=== PATIENT | female | born 1985 | race Caucasian/White ===

== ENCOUNTER 2023-09-14 18:39 | Emergency (ER) | payer BC, MEDICAID, SELFPAY ==
[2023-09-14 18:43] VITALS: BP 126/93; PULSE 94; RESP 16; TEMP 37; O2SAT 99; BMI 28.7
--- NOTE | 2023-09-14 18:53 | ED_ITS ---
HPI - Female Genitourinary General Chief complaint: Urogenital-Female Stated complaint: uti Time Seen by Provider: 09/14/23 18:41 Source: patient Mode of arrival: walk-in Limitations: no limitations History of Present Illness HPI Narrative: patient is a 38-year-old female who presents to the emergency department for a one-day history of urinary urgency and frequency. She states she has had minimal pain discharge. No flank or back pain. She denies fevers, chills, nausea, vomiting. She has had two or three previous urinary tract infection this year. She is not concerned for . She denies any concern for STD exposure. No medications taken prior to arrival. Related Data Previous Rx's Medication Instructions Recorded ondansetron 4 mg disintegrating 4 mg PO Q6H PRN nausea and 09/14/23 tablet vomiting #12 tabs phenazopyridine 200 mg tablet 200 mg PO Q8H 2 days #6 tabs 09/14/23 (Pyridium) sulfamethoxazole 800 1 tab PO BID 7 days #14 tabs 09/14/23 mg-trimethoprim 160 mg tablet (Bactrim DS) Allergies Allergy/AdvReac Type Severity Reaction Status Date / Time cefotaxime [From Claforan] Allergy Unknown Verified 09/14/23 18:43 Review of Systems ROS Constitutional Denies: fever or chills Ears, nose, mouth, and throat Denies: throat pain Cardiovascular Denies: chest pain Respiratory Denies: shortness of breath Gastrointestinal Denies: nausea or vomiting Genitourinary Reports: urinary frequency and urinary urgency Musculoskeletal Denies: back pain Integumentary/Breast Denies: rash Neurological Denies: headache Hematologic/Lymphatic Denies: easy bruising Exam Narrative Exam Narrative: Gen.: Awake, alert, in no distress Head: Normocephalic, atraumatic ENT: Moist mucous membranes Respiratory: No respiratory distress, lungs clear bilaterally Cardio: Regular rate and rhythm Gastrointestinal: Abdomen is soft, nondistended and nontender to palpation; no flank or back tenderness Extremities: Moves extremities equally Psych: Normal mood and affect Neuro: No focal neuro deficit Skin: Warm, dry, intact Constitutional Vital Signs, click to edit/add: Last Vital Signs Temp 98.6 F 09/14/23 18:43 Pulse 94 H 09/14/23 18:43 Resp 16 09/14/23 18:43 BP 126/93 H 09/14/23 18:43 Pulse Ox 99 09/14/23 18:43 O2 Del Method Room Air 09/14/23 18:43 Course Vital Signs Vital signs: Vital Signs Temperature 98.6 F 09/14/23 18:43 Pulse Rate 94 H 09/14/23 18:43 Respiratory Rate 16 09/14/23 18:43 Blood Pressure 126/93 H 09/14/23 18:43 Pulse Oximetry 99 09/14/23 18:43 Oxygen Delivery Method Room Air 09/14/23 18:43 Temperature 98.6 F 09/14/23 18:43 Pulse Rate 94 H 09/14/23 18:43 Respiratory Rate 16 09/14/23 18:43 Blood Pressure 126/93 H 09/14/23 18:43 Pulse Oximetry 99 09/14/23 18:43 Oxygen Delivery Method Room Air 09/14/23 18:43 MDM - Female Genitourinary MDM Narrative Medical decision making narrative: test is negative and urine specimen shows urinary tract infection. Patient treated with Bactrim, Zofran, Pyridium. As she has had multiple urinary tract infections this year, she is referred to urology for further evaluation and treatment. Stable vital signs at discharge. Return to the Emergency Room if symptoms change or worsen. Medical Records Attestation: I reviewed the patient's medical records. Lab Data Attestation: I reviewed the patient's lab results. Labs: Lab Results 09/14/23 Range/Units 18:50 Urine Color Lt. yellow (YELLOW) Urine Clarity Clear (CLEAR) Urine pH 6.5 (5.0-9.0) Ur Specific [place] <=1.005 A (1.005-1.025) Urine Protein 30 A (NEG/TRACE) mg/dL Urine Glucose (UA) Negative (NEGATIVE) mg/dL Urine Ketones Negative (NEGATIVE) mg/dL Urine Occult Blood Large A (NEGATIVE) Urine Nitrite Negative (NEGATIVE) Urine Bilirubin Negative (NEGATIVE) Urine Urobilinogen 0.2 (0.2-1.0) EU/dL Ur Leukocyte Esterase Large A (NEGATIVE) Urine RBC 0-2 (0-2) #/HPF Urine WBC 5-10 A (NONE SEEN) #/HPF Ur Squamous Epith Cells Few A (NONE/RARE) #/LPF Urine Crystals None seen (None Seen) #/HPF Urine Bacteria Trace A (NONE SEEN) #/HPF Urine Casts None seen (NONE SEEN) #/LPF Urine Mucus None seen (NONE SEEN) Ur Culture Indicated? Yes Urine HCG, Qual Negative (NEGATIVE) Discharge Plan Discharge Chief Complaint: Urogenital-Female Clinical Impression: Urinary tract infection Patient Disposition: Home, Self-Care Time of Disposition Decision: 19:22 Condition: Good Prescriptions / Home Meds: New sulfamethoxazole-trimethoprim [Bactrim DS] 800-160 mg tablet 1 tab PO BID 7 Days Qty: 14 0RF phenazopyridine [Pyridium] 200 mg tablet 200 mg PO Q8H 2 Days Qty: 6 0RF ondansetron 4 mg tablet,disintegrating 4 mg PO Q6H PRN (Reason: nausea and vomiting) Qty: 12 0RF Instructions: Urinary Tract Infection in Women (ED) Stand Alone Forms: Portal Instructions Referrals: Kristyn Bullock MD [Physician] - 1 week Physician,Non-Staff, [Primary Care Provider] - 1 week Discharge Date/Time: 09/14/23 19:48
[2023-09-14 19:06] LABS: Bilirubin Urine NEGATIVE (NEGATIVE); Blood Urine LARGE (NEGATIVE); Clarity Urine CLEAR (CLEAR); Color Urine LT. YELLOW (YELLOW); Glucose Urine UA NEGATIVE (NEGATIVE); Ketones Urine NEGATIVE (NEGATIVE); Leukocyte Esterase Urine LARGE (NEGATIVE); Nitrite Urine NEGATIVE (NEGATIVE); Protein Urine 30 mg/dL (NEG/TRACE); Specific Gravity Urine <=1.005 (1.005-1.025); Urobilinogen Urine 0.2 EU/dL (0.2-1.0); pH Urine 6.5 (5.0-9.0)
[2023-09-14] MEDS: PHENAZOPYRIDINE 100 MG TABLET 200 MG PO (19:08)
[2023-09-14 19:10] LABS: HCG Qualitative Urine* NEGATIVE (NEGATIVE); Urine Microscopic Indicated YES
[2023-09-14 19:20] LABS: Bacteria Urine TRACE #/HPF (NONE SEEN); Cast Seen? NONE SEEN #/LPF (NONE SEEN); Crystals Seen? None Seen #/HPF (None Seen); Mucus Urine NONE SEEN (NONE SEEN); RBC Urine 0-2 #/HPF (0-2); Squamous Epithelial Cell Urine FEW #/LPF (NONE/RARE)
[2023-09-14 19:21] LABS: Urine Culture Indicated YES
[2023-09-14] MEDS: SULFAMETHOXAZOLE/TRIMETHOPRIM 800-160 MG TABLET 1 TAB PO (19:45)
== END 2023-09-14 19:48 | disposition home or self-care (01) ==
PROVIDERS: Physician Assistant; Emergency Provider Emergency Medicine
DX: N39.0 Urinary tract infection, site not specified (principal)
CPT/HCPCS: 81001; 84703; 87086; 99283

== ENCOUNTER 2024-10-10 10:18 | Emergency (ER) | payer BC, SELFPAY ==
[2024-10-10 10:22] VITALS: BP 120/68; PULSE 72; TEMP 36.6; O2SAT 98; BMI 29.9
--- NOTE | 2024-10-10 10:32 | CT_ITS ---
[address] [address] Patient Name: BRAEDEN ADAMS MRN: [id number] date: 1985 Sex: F Assigned Patient Location: ER Current Patient Location: ER Accession/Order Number: [id number] Exam Date: 10/10/2024 12:15 Report Date: 10/10/2024 13:38 At the request of: CARLOS A LEWIS Procedure: CT abdomen pelvis w con CT ABDOMEN AND PELVIS WITH CONTRAST: INDICATION: Rectal pain, bleeding. COMPARISON: None. TECHNIQUE: Helical CT images of the abdomen and pelvis were obtained after the administration of intravenous contrast. Dose reduction techniques were achieved by using automated exposure control and/or adjustment of mA and/or kV according to patient size and/or use of iterative reconstruction technique. FINDINGS: LOWER CHEST: The visualized lung bases are clear. Small hiatal hernia. LIVER: Unremarkable. GALLBLADDER AND BILIARY SYSTEM: Unremarkable. SPLEEN: Unremarkable. PANCREAS: Unremarkable. ADRENAL GLANDS: Unremarkable. KIDNEYS AND URETERS: The kidneys enhance symmetrically. There is no hydronephrosis. No focal renal lesions. BLADDER: Under distended. GASTROINTESTINAL TRACT: No evidence of bowel obstruction or colitis. Normal appendix. VASCULATURE: Unremarkable. RETROPERITONEUM AND LYMPH NODES: No lymphadenopathy or mass. PERITONEUM/MESENTERY: No abdominal ascites. No free air. PELVIS: There is a right ovarian cyst measuring 4.2 x 3.3 cm. Partially collapsed right ovarian cyst measuring 1.8 x 1.6 cm. No pelvic ascites or lymphadenopathy. BODY WALL: Small fat-containing umbilical hernia. BONES: No acute abnormality. CT/CT abdomen pelvis w con IMPRESSION: 1. Right ovarian cyst measuring 4.2 cm. 2. Small hiatal hernia. 3. Small fat-containing umbilical hernia. Electronically authenticated by: BRANDON MAJOR Date: 10/10/2024 13:38
--- NOTE | 2024-10-10 10:32 | ED.GENADUL1 ---
HPI HPI - General Adult General Chief complaint: Abdominal Pain Stated complaint: RECTAL PAIN Time Seen by Provider: 10/10/24 10:20 Source: patient Mode of arrival: walk-in Limitations: no limitations History of Present Illness HPI narrative: 39-year-old female presents for rectal pain and bleeding. It began yesterday. She felt like she needed to have a bowel movement and she did but there was some blood mixed in with her stool. There was no injury and this is never happened to her previously. She does not complain of abdominal pain, all of her pain seems to be in the rectal region. The pain was moderate to severe and sharp. Related Data Previous Rx's ?Medication ?Instructions ?Recorded ondansetron 4 mg disintegrating 4 mg PO Q6H PRN nausea and 09/14/23 tablet vomiting #12 tabs phenazopyridine 200 mg tablet 200 mg PO Q8H 2 days #6 tabs 09/14/23 (Pyridium) sulfamethoxazole 800 1 tab PO BID 7 days #14 tabs 09/14/23 mg-trimethoprim 160 mg tablet (Bactrim DS) Allergies Allergy/AdvReac Type Severity Reaction Status Date / Time cefotaxime (From Claforan) Allergy Unknown Rash Verified 10/10/24 10:26 Opioid HPI Opioid Management Most Recent Opioid Data: No Data to Display Review of Systems ROS Narrative A ten point review of systems is negative except as noted above. PFSH PFSH Social History Little interest or pleasure in doing things: not at all Feeling down, depressed, or hopeless: not at all Exam Narrative Exam Narrative: Nurses note and vital signs reviewed and patient is not hypoxic. General: The patient appears in no apparent distress. Patient is laying on her side. Skin: Warm, dry, no pallor noted. There is no rash noted. Head: Normocephalic, atraumatic Eye: Normal conjunctiva, no drainage Ears, Nose, Mouth, and Throat: oral mucosa is moist. Nares patent. Cardiovascular: Regular Rate and Rhythm Respiratory: Patient is in no distress, no accessory muscle use, lungs are clear to auscultation, no wheezing, rales or rhonchi Back: non-tender GI: Soft and nontender. Perianal examination shows no external hemorrhoids nor any fissures or tears. Musculoskeletal: The patient has no evidence of calf tenderness, no pitting edema, symmetrical pulses noted bilaterally Neurological: A&O, normal speech Psychiatric: Cooperative Constitutional Vital Signs, click to edit/add: Last Vital Signs Temp 97.9 F 10/10/24 10:22 Pulse 72 10/10/24 10:22 Resp 20 10/10/24 10:22 BP 120/68 10/10/24 10:22 Pulse Ox 98 10/10/24 10:22 Course Vital Signs Vital signs: Vital Signs Temperature 97.9 F 10/10/24 10:22 Pulse Rate 72 10/10/24 10:22 Respiratory Rate 20 10/10/24 10:22 Blood Pressure 120/68 10/10/24 10:22 Pulse Oximetry 98 10/10/24 10:22 Temperature 97.9 F 10/10/24 10:22 Pulse Rate 72 10/10/24 10:22 Respiratory Rate 20 10/10/24 10:22 Blood Pressure 120/68 10/10/24 10:22 Pulse Oximetry 98 10/10/24 10:22 Medical Decision Making [facility] Narrative Medical decision making narrative: CAT scan shows incidental finding of an ovarian cyst but no findings to explain her symptoms. She is released home and the CAT scan findings were discussed with her. Blood work also essentially normal. Treatment diagnosis and follow-up were discussed thoroughly. Differential Diagnosis Differential Diagnosis: Constipation, proctitis Lab Data Lab results reviewed: Yes I reviewed the patient's lab results Labs: Lab Results 10/10/24 Range/Units 11:16 WBC 6.3 (4.0-11.0) 10^3/uL RBC 4.26 (4.20-5.40) 10^6/uL Hgb 13.3 (12.0-16.0) g/dL Hct 37.7 (36.0-48.0) % MCV 88.5 (81.0-99.0) fL MCH 31.2 (26.7-34.0) pg MCHC 35.3 H (29.9-35.2) g/dL RDW 11.6 (11.0-15.0) % Plt Count 204 (150-450) 10^3/uL MPV 10.8 (9.5-13.5) fL Neut % (Auto) 57.7 (43.0-75.0) % Lymph % (Auto) 32.8 (20.5-60.0) % [place] % (Auto) 7.1 (1.7-12.0) % Eos % (Auto) 1.4 (0.9-7.0) % Baso % (Auto) 0.5 (0.2-2.0) % Neut # (Auto) 3.7 (1.4-6.5) 10^3/uL Lymph # (Auto) 2.1 (1.2-3.8) 10^3/uL [place] # (Auto) 0.5 (0.3-0.8) 10^3/uL Eos # (Auto) 0.1 (0.0-0.7) 10^3/uL Baso # (Auto) 0.0 (0.0-0.1) 10^3/uL Abs Immat Gran (auto) 0.03 (0.00-0.03) 10^3/uL Imm/Tot Granulo (auto) 0.5 (0.0-0.5) % Sodium 140 (136-145) mmol/L Potassium 4.1 (3.5-5.1) mmol/L Chloride 107 (98-107) mmol/L Carbon Dioxide 24.1 (21.0-32.0) mmol/L Anion Gap 13.0 BUN 14.0 (7.0-18.0) mg/dL Creatinine 0.92 (0.55-1.02) mg/dL Est GFR ( Amer) >60 (>=60 mL/min/1.73m^2) Est GFR (Non-Af Amer) >60 (>=60 mL/min/1.73m^2) BUN/Creatinine Ratio 15.2 Glucose 105 (74-106) mg/dL Calcium 8.6 (8.5-10.1) mg/dL Serum HCG, Qual Negative (NEGATIVE) Imaging Data CT scan - abdomen: Radiologist's impression: ITS Impressions Abdomen/Pelvis CT 10/10/24 10:32 IMPRESSION: 1. Right ovarian cyst measuring 4.2 cm. 2. Small hiatal hernia. 3. Small fat-containing umbilical hernia. Electronically authenticated by: BRANDON MAJOR Date: 10/10/2024 13:38 Discharge Plan Discharge Chief Complaint: Abdominal Pain Clinical Impression: Rectal pain Patient Disposition: Home, Self-Care Time of Disposition Decision: 13:50 Condition: Good Mode of Transportation: Private Vehicle Prescriptions / Home Meds: No Action sulfamethoxazole-trimethoprim [Bactrim DS] 800-160 mg tablet 1 tab PO BID 7 Days Qty: 14 0RF phenazopyridine [Pyridium] 200 mg tablet 200 mg PO Q8H 2 Days Qty: 6 0RF ondansetron 4 mg tablet,disintegrating 4 mg PO Q6H PRN (Reason: nausea and vomiting) Qty: 12 0RF Print Language: Croatian Instructions: Rectal Pain (ED) Referrals: [facility] [Primary Care Provider] - 1 week
[2024-10-10 11:36] LABS: Basophils Percent Auto 0.5 % (0.2-2.0); Eosinophils Absolute Auto 0.1 10^3/uL (0.0-0.7); Eosinophils Percent Auto 1.4 % (0.9-7.0); Hematocrit 37.7 % (36.0-48.0); Hemoglobin 13.3 g/dL (12.0-16.0); Immature Granulocytes Abs Auto 0.03 10^3/uL (0.00-0.03); Immature Granulocytes Pct Auto 0.5 % (0.0-0.5); Lymphocytes Absolute Auto 2.1 10^3/uL (1.2-3.8); Lymphocytes Percent Auto 32.8 % (20.5-60.0); Mean Corpuscular HGB Conc 35.3 g/dL (29.9-35.2); Mean Corpuscular Hemoglobin 31.2 pg (26.7-34.0); Mean Corpuscular Volume 88.5 fL (81.0-99.0); Mean Platelet Volume 10.8 fL (9.5-13.5); Monocytes Absolute Auto 0.5 10^3/uL (0.3-0.8); Monocytes Percent Auto 7.1 % (1.7-12.0); Neutrophils Absolute Auto 3.7 10^3/uL (1.4-6.5); Neutrophils Percent Auto 57.7 % (43.0-75.0); Platelet Count 204 10^3/uL (150-450); Red Blood Count 4.26 10^6/uL (4.20-5.40); Red Cell Distribution Width 11.6 % (11.0-15.0); White Blood Count 6.3 10^3/uL (4.0-11.0)
[2024-10-10 11:51] LABS: HCG Qualitative NEGATIVE (NEGATIVE); Internal Control Within Normal Limits
[2024-10-10 11:52] LABS: BUN Creatinine Ratio 15.2; Calcium 8.6 mg/dL (8.5-10.1); Carbon Dioxide 24.1 mmol/L (21.0-32.0); Chloride 107 mmol/L (98-107); Estimated GFR (African America >60 (>=60 mL/min/1.73m^2); Estimated GFR (Non-African Ame >60 (>=60 mL/min/1.73m^2); Glucose 105 mg/dL (74-106); Potassium 4.1 mmol/L (3.5-5.1); Sodium 140 mmol/L (136-145)
[2024-10-10 14:02] VITALS: BP 116/70; PULSE 66; O2SAT 99
== END 2024-10-10 14:04 | disposition home or self-care (01) ==
PROVIDERS: Emergency Provider Emergency Medicine
DX: K62.89 Other specified diseases of anus and rectum (principal); K44.9 Diaphragmatic hernia without obstruction or gangrene; K42.9 Umbilical hernia without obstruction or gangrene; N83.201 Unspecified ovarian cyst, right side
CPT/HCPCS: 36415; 74177; 80048; 84703; 85025; 99284; Q9967